=== PATIENT | male | born 2000 | race Hispanic/Latino ===

== ENCOUNTER 2020-06-27 19:26 | Inpatient (IN) | payer OTHER, SELFPAY ==
[~2020-06-27] VITALS: Ht 175.3 cm; Wt 89.5 kg
[2020-06-27] MEDS ORDERED: ACETAMINOPHEN-CODEINE 300/30MG TAB ONE (20:26)
[2020-06-27 20:53] LABS: BASOPHILS % (AUTO) 0.1 % (0.0-5.0); LYMPHOCYTES % (AUTO) 3.9 % (21.0-51.0); MEAN CORPUSCULAR HEMOGLOBIN 32.5 pg (27.0-33.0); MEAN CORPUSCULAR HGB CONC 36.1 g/dL (32.0-36.0); MONOCYTES % (AUTO) 7.9 % (3.0-13.0); NEUTROPHILS % (AUTO) 87.5 % (40.0-77.0); PLATELET COUNT (AUTO) 160 K/uL (130-400); RED BLOOD CELL COUNT(AUTO) 4.22 MIL/uL (4.50-6.20); RED CELL DISTRIBUTION WIDTH 11.8 % (11.0-15.5); WHITE BLOOD COUNT (AUTO) 17.4 K/uL (4.8-10.8)
[2020-06-27 21:04] LABS: ABG BASE EXCESS 1.5 mmol/L (-2.0-3.0); ABG HCO3 24.6 mmol/L (21.0-28.0); ABG OXYGEN SATURATION 88.4 % (95.0-99.0); ABG PCO2 35 mmHg (35-48)
[2020-06-27 21:05] LABS: CREATININE 1.2 mg/dL (0.5-1.5); INR 1.12 (0.85-1.15); POTASSIUM 3.7 mmol/L (3.5-5.1); PROTHROMBIN TIME 12.1 SEC (9.6-11.6)
[2020-06-27 21:06] LABS: PARTIAL THROMBOPLASTIN TIME 27.3 SEC (26.3-35.5)
[2020-06-27 21:10] LABS: ALBUMIN 3.4 g/dL (3.5-5.0); BILIRUBIN,TOTAL 1.7 mg/dL (0.2-1.0); TOTAL PROTEIN, SERUM 7.8 g/dL (6.0-8.3)
[2020-06-27] MEDS ORDERED: ALBUTEROL INHALER 90MCG/INH IH ONE (21:10)
[2020-06-27] MEDS ORDERED: CEFTRIAXONE SODIUM 1 GM ONE (21:10)
[2020-06-27] MEDS ORDERED: AZITHROMYCIN 250 MG TABLET PO ONE ×2 (21:11)
[2020-06-27] MEDS ORDERED: SODIUM CHLORIDE 0.9% 1000ML 1,000 ML IV ONE (21:12)
[2020-06-27] MEDS ORDERED: ONDANSETRON HCL 4 MG/2 ML VIAL IV PRN (23:00)
[2020-06-27] MEDS ORDERED: DEXAMETHASONE SOD PHOSPHATE 4 MG/ML 1ML VIAL IVP SCH (23:00)
[2020-06-27] MEDS ORDERED: ERGOCALCIFEROL (VITAMIN D2) 50,000 UNIT CAPSULE PO ONE (23:00)
[2020-06-27] MEDS ORDERED: ACETAMINOPHEN 325 MG TAB PO PRN ×2 (23:00)
[2020-06-27] MEDS ORDERED: IOHEXOL-350 75 ML VIAL IV ONE (23:19)
[2020-06-28] VITALS (7 sets, daily range): BP systolic 109–125; BP diastolic 50–75
[2020-06-28 04:18] LABS: BASOPHILS % (AUTO) 0.2 % (0.0-5.0); EOSINOPHILS % (AUTO) 0.2 % (0.0-8.0); HEMATOCRIT 37.2 % (42-54); LYMPHOCYTES % (AUTO) 8.1 % (21.0-51.0); MEAN CORPUSCULAR HEMOGLOBIN 31.5 pg (27.0-33.0); MEAN CORPUSCULAR HGB CONC 34.7 g/dL (32.0-36.0); MONOCYTES % (AUTO) 9.1 % (3.0-13.0); NEUTROPHILS % (AUTO) 81.8 % (40.0-77.0); PLATELET COUNT (AUTO) 161 K/uL (130-400); RED BLOOD CELL COUNT(AUTO) 4.09 MIL/uL (4.50-6.20); RED CELL DISTRIBUTION WIDTH 11.8 % (11.0-15.5); WHITE BLOOD COUNT (AUTO) 18.3 K/uL (4.8-10.8)
[2020-06-28 04:34] LABS: ALBUMIN 3.1 g/dL (3.5-5.0); BILIRUBIN,TOTAL 1.3 mg/dL (0.2-1.0); CREATININE 1.1 mg/dL (0.5-1.5); POTASSIUM 4.2 mmol/L (3.5-5.1); TOTAL PROTEIN, SERUM 7.6 g/dL (6.0-8.3)
[2020-06-28 05:10] LABS: CRP QUANTITATIVE 219.3 mg/L (0.00-9.0)
[2020-06-28] MEDS ORDERED: DOXYCYCLINE 100MG+NS 250ML IV SCH (07:45)
[2020-06-28] MEDS ORDERED: ASCORBIC ACID 500 MG TAB PO SCH (09:00)
[2020-06-28] MEDS ORDERED: FAMOTIDINE/PF 20 MG/2 ML VIAL IV SCH (09:00)
[2020-06-28] MEDS ORDERED: ZINC SULFATE 220 CAPSULE PO SCH (09:00)
[2020-06-28] MEDS ORDERED: ENOXAPARIN SODIUM 40 MG/0.4 ML SYRINGE SQ SCH (09:00)
[2020-06-28] MEDS: CEFTRIAXONE SODIUM 1 GM IVP SCH ×2 (09:13→20:24)
[2020-06-28] MEDS: DOXYCYCLINE 100MG+NS 250ML 250 ML IV SCH ×2 (09:14→20:24)
[2020-06-28] MEDS: ENOXAPARIN SODIUM 30 MG/0.3 ML SQ SCH (09:14)
[2020-06-29 03:07] VITALS: BP 108/50
[2020-06-29 04:20] LABS: BASOPHILS % (AUTO) 0.3 % (0.0-5.0); EOSINOPHILS % (AUTO) 0.8 % (0.0-8.0); HEMATOCRIT 36.5 % (42-54); LYMPHOCYTES % (AUTO) 24.7 % (21.0-51.0); MEAN CORPUSCULAR HEMOGLOBIN 31.3 pg (27.0-33.0); MEAN CORPUSCULAR HGB CONC 34.2 g/dL (32.0-36.0); MEAN CORPUSCULAR VOLUME 91.3 fL (79-99); MONOCYTES % (AUTO) 10.2 % (3.0-13.0); NEUTROPHILS % (AUTO) 63.5 % (40.0-77.0); PLATELET COUNT (AUTO) 174 K/uL (130-400); RED CELL DISTRIBUTION WIDTH 11.8 % (11.0-15.5); WHITE BLOOD COUNT (AUTO) 7.4 K/uL (4.8-10.8)
[2020-06-29 04:47] LABS: ALBUMIN 2.9 g/dL (3.5-5.0); BILIRUBIN,TOTAL 0.6 mg/dL (0.2-1.0); POTASSIUM 3.9 mmol/L (3.5-5.1); TOTAL PROTEIN, SERUM 7.2 g/dL (6.0-8.3)
[2020-06-29 05:41] LABS: CRP QUANTITATIVE 190.8 mg/L (0.00-9.0)
[2020-06-29 08:00] VITALS: BP 113/68
[2020-06-29] MEDS: CEFTRIAXONE SODIUM 1 GM IVP SCH (08:44)
[2020-06-29] MEDS: DOXYCYCLINE 100MG+NS 250ML 250 ML IV SCH (08:44)
[2020-06-29] MEDS: ENOXAPARIN SODIUM 30 MG/0.3 ML SQ SCH (08:44)
[2020-06-29] MEDS ORDERED: DOXY100C2 PO (09:35)
== END 2020-06-29 12:35 | disposition home or self-care (01) | DRG 177 ==
LOC: EDH 19:26 → EDBD 19:26 → EDHIP 19:27 → 2DH 06-28 00:50
PROVIDERS: ADMIT Family Medicine; ATTEND Family Medicine
DX: U07.1 COVID-19 (principal); J12.82 Pneumonia due to coronavirus disease 2019; J96.01 Acute respiratory failure with hypoxia
CPT/HCPCS: 36415; 36600; 71045; 71275; 76705; 80053; 82728; 82803; 83605; 83615; 84145; 85025; 85378; 85610; 85730; 86140; 86850; 86900; 86901; 87040; 87426; 93005; G0378; J0696; J1650; J3490; J7030; Q9967; U0003

== ENCOUNTER 2021-02-27 17:38 | Emergency (ER) | payer OTHER ==
[~2021-02-27] VITALS: Ht 175.3 cm; Wt 95.3 kg
[~2021-02-27 17:38] MED LIST: DOXY100C5 PO
[2021-02-27] MEDS ORDERED: 0.9%NACL 1000ML 1,000 ML IV ONE ×2 (18:00→18:04)
[2021-02-27] MEDS ORDERED: ONDANSETRON 4MG INJ IVP ONE (18:00)
[2021-02-27] MEDS ORDERED: PANTOPRAZOLE 40 MG/VIAL IVP ONE (18:00)
[2021-02-27 18:02] LABS: APPEARANCE,URINE Clear (CLEAR); BILIRUBIN,URINE Small (NEGATIVE); COLOR,URINE Dark Yellow (YELLOW); GLUCOSE, URINE (UA) Negative (NEGATIVE); KETONES,URINE >=80 mg/dL (NEGATIVE); LEUKOCYTE ESTERASE ,URINE Negative (NEGATIVE); NITRATE,URINE Negative (NEGATIVE); OCCULT BLOOD,URINE Moderate (NEGATIVE); PH,URINE 5.5 (5.0-8.0); PROTEIN,URINE POS 2+ mg/dL (NEGATIVE)
[2021-02-27] MEDS ORDERED: ONDANSETRON 4MG INJ ONE (18:03)
[2021-02-27] MEDS ORDERED: PANTOPRAZOLE 40 MG/VIAL ONE (18:03)
[2021-02-27 18:07] LABS: BASOPHILS % (AUTO) 0.2 % (0.0-5.0); HEMATOCRIT 51.1 % (42-54); LYMPHOCYTES % (AUTO) 9.5 % (21.0-51.0); MEAN CORPUSCULAR HEMOGLOBIN 32.7 pg (27.0-33.0); MEAN CORPUSCULAR HGB CONC 35.2 g/dL (32.0-36.0); MEAN CORPUSCULAR VOLUME 92.9 fL (79-99); MONOCYTES % (AUTO) 4.7 % (3.0-13.0); NEUTROPHILS % (AUTO) 85.3 % (40.0-77.0); PLATELET COUNT (AUTO) 218 K/uL (130-400); RED CELL DISTRIBUTION WIDTH 12.2 % (11.0-15.5); WHITE BLOOD COUNT (AUTO) 12.8 K/uL (4.8-10.8)
[2021-02-27 18:15] LABS: POTASSIUM 4.3 mmol/L (3.5-5.1)
[2021-02-27 18:17] LABS: BACTERIA,URINE Few /HPF (None Seen); MUCUS,URINE Few LPF (None Seen); RBC,URINE None Seen /HPF (0-1); SQUAMOUS EPITHELIAL CELL,UR 0-2 /HPF (0-2); WBC,URINE 0-1 /HPF (0-1)
[2021-02-27 18:20] LABS: ALBUMIN 5.3 g/dL (3.5-5.0); TOTAL PROTEIN, SERUM 9.1 g/dL (6.0-8.3)
[2021-02-27 19:55] VITALS: BP 130/76
[2021-02-27] MEDS ORDERED: PANT40TA54 PO (19:56)
[2021-02-27] MEDS ORDERED: ONDA4TAB4 PO (19:56)
== END 2021-02-27 20:17 | disposition home or self-care (01) ==
LOC: EDH 17:38
DX: K29.20 Alcoholic gastritis without bleeding (principal); E86.0 Dehydration; R31.9 Hematuria, unspecified; R11.2 Nausea with vomiting, unspecified; F10.10 Alcohol abuse, uncomplicated; F17.210 Nicotine dependence, cigarettes, uncomplicated; Z79.899 Other long term (current) drug therapy
CPT/HCPCS: 36415; 80053; 81001; 83690; 85025; 96361; 96374; 96375; 99284; C9113; J2405; J7030

== ENCOUNTER 2021-03-10 16:51 | Emergency (ER) | payer OTHER ==
[~2021-03-10] VITALS: Ht 177.8 cm; Wt 97.5 kg
[~2021-03-10 16:51] MED LIST changes: +ONDA4TAB4 PO; +PANT40TA54 PO
[2021-03-10 17:40] VITALS: BP 110/61
[2021-03-10] MEDS: IBUPROFEN 600 MG TABLET PO SCH (17:57)
[2021-03-10] MEDS: ONDANSETRON 4MG TABLET PO SCH (17:57)
[2021-03-10] MEDS ORDERED: IBUP-2070 PO (18:21)
[2021-03-10] MEDS ORDERED: ACET-3194 PO (18:21)
[2021-03-10] MEDS ORDERED: BROM237S PO (18:21)
[2021-03-10] MEDS ORDERED: PSEU120T62 PO (18:21)
[2021-03-10] MEDS: ONDANSETRON 4MG TABLET ONE (18:23)
[2021-03-10] MEDS: IBUPROFEN 600 MG TABLET ONE (18:23)
== END 2021-03-10 18:32 | disposition home or self-care (01) ==
LOC: EDH 16:51
DX: U07.1 COVID-19 (principal); E11.9 Type 2 diabetes mellitus without complications; F17.210 Nicotine dependence, cigarettes, uncomplicated; Z79.1 Long term (current) use of non-steroidal anti-inflammatories (NSAID); Z79.899 Other long term (current) drug therapy
CPT/HCPCS: 87635; 87804 ×2; 99283; C9803; Q0162